=== PATIENT | female | born 2000 | race Two or more races ===

== ENCOUNTER 2024-02-24 14:24 | Emergency (ER) | payer OTHER ==
[~2024-02-24] VITALS: Ht 160 cm; Wt 47.2 kg
[2024-02-24 14:32] VITALS: BP 110/64; O2SAT 100
== END 2024-02-24 15:32 | disposition home or self-care (01) ==
LOC: ER 14:25
DX: L02.818 Cutaneous abscess of other sites (principal); B99.9 Unspecified infectious disease